=== PATIENT | male | born 1950 | race Caucasian/White ===

== ENCOUNTER 2021-06-06 09:46 | Inpatient (IN) | payer MEDICARE, MEDICAID ==
[~2021-06-06] VITALS: Ht 172.7 cm; Wt 86.2 kg
[2021-06-06 10:32] LABS: BASOPHILS % 0.5 % (0.0-2.0); EOSINOPHILS % 1.4 % (0.0-5.0); HEMATOCRIT. 48.9 % (42.0-52.0); HEMOGLOBIN. 16.2 g/dL (14.0-18.0); LYMPHOCYTES % 24.3 % (20.0-50.0); MEAN CORPUSCULAR HEMOGLOBIN 26.5 pg (28.0-32.0); MEAN PLATELET VOLUME 8.4 fl (7.4-10.4); MONOCYTES % 5.5 % (2.0-8.0); NEUTROPHILS % 68.3 % (40.0-76.0); PLATELET 190 x1000/uL (130-400); RED BLOOD CELL COUNT 6.11 mill/uL (4.7-6.1)
[2021-06-06 10:35] LABS: CHLORIDE 102 mEq/L (98-107)
[2021-06-06 10:40] LABS: PARTIAL THROMBOPLASTIN TIME 26.7 sec (23.4-31.0); PROTHROMBIN TIME 10.5 sec (9.6-11.0)
[2021-06-06] MEDS ORDERED: SODIUM CHLORIDE 0.9% 1,000 ML IV SCH (10:45)
[2021-06-06] MEDS ORDERED: INSU100I32 SQ (11:34)
[2021-06-06] MEDS ORDERED: INSU100I24 SQ (11:34)
[2021-06-06] MEDS ORDERED: BACITRACIN 15GM TUBE TOP ONE (11:47)
[2021-06-06] MEDS ORDERED: BUPIVACAINE HCL/PF 0.5% (5MG/ML) 30ML ONE (11:47)
[2021-06-06] MEDS ORDERED: POLYMYXIN B SULFATE 500000 UNITS/VIAL ONE (11:48)
[2021-06-06] MEDS ORDERED: SODIUM CHLORIDE 0.9% INJ 10ML FLUSH IVF ONE (11:48)
[2021-06-06] MEDS ORDERED: LIDOCAINE HCL 1% 10 MG/ML 10ML VIAL ONE (11:48)
[2021-06-06] MEDS ORDERED: SODIUM CHLORIDE 0.9% 500 ML IV ONE (11:49)
[2021-06-06] MEDS ORDERED: SODIUM CHLORIDE 0.9% 1,000 ML ONE (11:49)
[2021-06-06] MEDS ORDERED: THROMBIN (BOVINE) 5000 UNITS/VIAL TOP ONE (11:49)
[2021-06-06] MEDS ORDERED: HEPARIN SODIUM 1,000 UNIT/1ML VIAL IV ONE (11:58)
[2021-06-06] MEDS ORDERED: MORPHINE SULFATE 4 MG/ML CPJ (NOT FOR IM USE) IV PRN (12:00)
[2021-06-06] MEDS ORDERED: ETOMIDATE 2MG/ML 10ML VIAL IV ONE (12:23)
[2021-06-06] MEDS ORDERED: ROCURONIUM BROMIDE 10MG/ML VIAL 5ML IV ONE (12:24)
[2021-06-06] MEDS ORDERED: SUCCINYLCHOLINE CHLORIDE 200MG/10ML IV ONE (12:24)
[2021-06-06] MEDS ORDERED: ACETAMINOPHEN 500MG TABLET ONE (12:26)
[2021-06-06] MEDS ORDERED: FENTANYL CITRATE/PF 50MCG/ML 2ML VIAL ONE (12:33)
[2021-06-06] MEDS ORDERED: NALOXONE HCL 0.4MG/ML VIAL IV PRN (12:45)
[2021-06-06] MEDS ORDERED: SODIUM CHLORIDE 0.9% 10ML VIAL ONE (13:15)
[2021-06-06] MEDS ORDERED: HEPARIN 1000 UNITS/ML 10ML ONE (13:15)
[2021-06-06] MEDS ORDERED: INSULIN REGULAR (HUMULIN R) 300UNITS/3ML VIAL ONE (13:22)
[2021-06-06] MEDS ORDERED: EPHEDRINE SULFATE 50MG/ML VIAL ONE (13:40)
[2021-06-06] MEDS ORDERED: ALBUMIN HUMAN 12.5G/250ML (5%) IV ONE (14:10)
[2021-06-06] MEDS ORDERED: PROTAMINE SULFATE 10MG/ML VIAL 25ML IV ONE (14:19)
[2021-06-06] MEDS ORDERED: ONDANSETRON HCL 4MG/2ML INJ ONE (14:23)
[2021-06-06] MEDS ORDERED: NEOSTIGMINE METHYLSULFATE 1MG/ML 10 ML VIAL ONE (14:44)
[2021-06-06] MEDS ORDERED: GLYCOPYRROLATE 0.2 MG/ML 2ML VIAL ONE (14:45)
[2021-06-06] MEDS ORDERED: FENTANYL CITRATE/PF 50MCG/ML 2ML VIAL IV PRN (15:00)
[2021-06-06] MEDS ORDERED: INSULIN REGULAR (HUMULIN R) 300UNITS/3ML VIAL SUBCUT NR (15:00)
[2021-06-06] MEDS ORDERED: GABA-532 PO (15:35)
[2021-06-06] MEDS ORDERED: BRIM5DRO BOTHEYE (15:35)
[2021-06-06] MEDS ORDERED: ROSU40TA PO (15:35)
[2021-06-06] MEDS ORDERED: DORZ10DR8 BOTHEYE (15:35)
[2021-06-06] MEDS ORDERED: DORZ10DR17 OP (15:35)
[2021-06-06] MEDS ORDERED: CHOL3000 PO (15:35)
[2021-06-06] MEDS ORDERED: LISI10TA26 PO (15:35)
[2021-06-06] MEDS ORDERED: METO25TA6 PO (15:35)
[2021-06-06 17:00] VITALS: BP 174/65
[2021-06-06 17:30] VITALS: BP 174/65
[2021-06-06] MEDS ORDERED: DEXTROSE 50% WATER 50ML SYRINGE IV PRN (18:45)
[2021-06-06] MEDS ORDERED: ONDANSETRON HCL 4MG/2ML INJ IV PRN (18:45)
[2021-06-06] MEDS ORDERED: HYDROCODONE/ACETAMINOPHEN 5/325MG TABLET PO PRN (18:45)
[2021-06-06 20:00] VITALS: BP 142/61
[2021-06-06] MEDS: INSULIN LISPRO 100 UNITS/ML SUBCUT SCH (21:03)
[2021-06-06] MEDS: BLOOD SUGAR DIAGNOSTIC STRIP TEST SCH (21:12)
[2021-06-06] MEDS: INSULIN GLARGINE 100 UNITS/ML SUBCUT SCH (21:47)
[2021-06-07] VITALS (7 sets, daily range): BP systolic 116–172; BP diastolic 58–73
[2021-06-07] MEDS: BLOOD SUGAR DIAGNOSTIC STRIP TEST SCH ×2 (05:57→11:33)
[2021-06-07] MEDS: INSULIN LISPRO 100 UNITS/ML SUBCUT SCH ×2 (06:28→12:37)
[2021-06-07] MEDS: INSULIN GLARGINE 100 UNITS/ML SUBCUT SCH (09:28)
[2021-06-07 09:53] LABS: HEMATOCRIT 40.9 % (42.0-52.0); HEMOGLOBIN 13.5 g/dL (14.0-18.0); MEAN CORPUSCULAR HEMOGLOBIN 26.6 pg (28.0-32.0); MEAN CORPUSCULAR VOLUME 80.5 fL (80.0-94.0); PLATELET 176 x1000/uL (130-400); RED BLOOD CELL COUNT 5.08 mill/uL (4.7-6.1)
[2021-06-07] MEDS ORDERED: LISINOPRIL 20MG TABLET PO SCH (12:45)
[2021-06-07] MEDS ORDERED: MORPHINE SULFATE 2 MG/ML CPJ (NOT FOR IM USE) IV PRN (14:50)
[2021-06-07] MEDS ORDERED: METOPROLOL TARTRATE 25MG TABLET PO SCH (21:00)
== END 2021-06-07 16:40 | disposition home or self-care (01) | DRG 254 ==
LOC: OR 09:46 → 7EST 09:47
PROVIDERS: ADMIT Internal Medicine; ATTEND Internal Medicine
PROC: 041K0JL Bypass Right Femoral Artery to Popliteal Artery with Synthetic Substitute, Open Approach (ICD-10-PCS; principal; 2021-06-06)
DX: E11.52 Type 2 diabetes mellitus with diabetic peripheral angiopathy with gangrene (principal); E11.65 Type 2 diabetes mellitus with hyperglycemia; I10 Essential (primary) hypertension; Z20.822 Contact with and (suspected) exposure to COVID-19; I70.291 Other atherosclerosis of native arteries of extremities, right leg
CPT/HCPCS: 36415; 71045; 80048; 82962; 83036; 85025; 85027; 86850; 86900; 87426; 88304; 88311; 93005; 97162; C1751; J0330; J1644; J1815; J2405; J2710; J2720; J3010; J3490; J7030; J7040; P9041

== ENCOUNTER 2021-09-19 08:57 | Inpatient (IN) | payer MEDICARE, MEDICAID ==
[~2021-09-19] VITALS: Ht 172.7 cm; Wt 91.3 kg
[~2021-09-19 08:57] MED LIST: BRIM5DRO BOTHEYE; CHOL3000 PO; DORZ10DR17 OP; DORZ10DR8 BOTHEYE; GABA-532 PO; INSU100I24 SQ; INSU100I32 SQ; LISI10TA26 PO; METO25TA6 PO; ROSU40TA PO
[2021-09-19 10:30] LABS: BASOPHILS % 0.5 % (0.0-2.0); HEMATOCRIT. 46.5 % (42.0-52.0); HEMOGLOBIN. 15.2 g/dL (14.0-18.0); MEAN CORPUSCULAR HEMOGLOBIN 26.1 pg (28.0-32.0); MEAN CORPUSCULAR VOLUME 79.8 fL (80.0-94.0); MEAN PLATELET VOLUME 8.5 fl (7.4-10.4); MONOCYTES % 5.9 % (2.0-8.0); NEUTROPHILS % 67.6 % (40.0-76.0); PLATELET 195 x1000/uL (130-400); RED BLOOD CELL COUNT 5.83 mill/uL (4.7-6.1); RED CELL DISTRIBUTION WIDTH 14.8 % (11.6-14.6)
[2021-09-19 10:43] LABS: PARTIAL THROMBOPLASTIN TIME 26.8 sec (23.4-31.0); PROTHROMBIN TIME 10.8 sec (9.6-11.0)
[2021-09-19] MEDS ORDERED: SODIUM CHLORIDE 0.9% 1,000 ML IV SCH ×2 (11:00→14:45)
[2021-09-19] MEDS ORDERED: BUPIVACAINE HCL 0.5% (5MG/ML) 50ML ONE (11:15)
[2021-09-19] MEDS ORDERED: LIDOCAINE HCL 1% 50ML VIAL (10MG/ML) ONE ×2 (11:15→12:10)
[2021-09-19] MEDS ORDERED: POLYMYXIN B SULFATE 500000 UNITS/VIAL ONE (11:15)
[2021-09-19] MEDS ORDERED: HEPARIN SODIUM 1,000 UNIT/1ML VIAL IV ONE (11:15)
[2021-09-19] MEDS ORDERED: BACITRACIN 15GM TUBE TOP ONE (11:15)
[2021-09-19] MEDS ORDERED: THROMBIN (BOVINE) 5000 UNITS/VIAL TOP ONE (11:15)
[2021-09-19] MEDS ORDERED: PROPOFOL 200MG/20ML VIAL IV ONE (13:21)
[2021-09-19] MEDS ORDERED: FENTANYL CITRATE/PF 50MCG/ML 2ML VIAL ONE (13:22)
[2021-09-19] MEDS ORDERED: MIDAZOLAM HCL 2 MG/2 ML VIAL ONE (13:22)
[2021-09-19] MEDS ORDERED: ONDANSETRON HCL 4MG/2ML INJ IV PRN ×2 (13:30→14:45)
[2021-09-19] MEDS ORDERED: CEFAZOLIN SODIUM 1000MG/VIAL ONE (13:38)
[2021-09-19] MEDS ORDERED: NALOXONE HCL 0.4MG/ML VIAL IV PRN (13:45)
[2021-09-19] MEDS ORDERED: EPHEDRINE SULFATE 50MG/ML VIAL ONE (14:09)
[2021-09-19] MEDS ORDERED: DEXAMETHASONE 4MG/ML 1ML VIAL ONE (14:31)
[2021-09-19] MEDS ORDERED: ONDANSETRON HCL 4MG/2ML INJ ONE (14:31)
[2021-09-19] MEDS ORDERED: METOCLOPRAMIDE HCL 10MG/2ML VIAL ONE (14:31)
[2021-09-19] MEDS ORDERED: HEPARIN 1000 UNITS/ML 10ML ONE (14:31)
[2021-09-19] MEDS ORDERED: MEPERIDINE HCL/PF 25MG/ML CPJ IV PRN (14:45)
[2021-09-19] MEDS ORDERED: FENTANYL CITRATE/PF 50MCG/ML 2ML VIAL IV PRN (14:45)
[2021-09-19] MEDS ORDERED: HYDROMORPHONE HCL/PF 2MG/ML CPJ IV PRN (14:45)
[2021-09-19] MEDS ORDERED: PROTAMINE SULFATE 10MG/ML VIAL 5ML IV ONE (15:03)
[2021-09-19 19:50] VITALS: BP 157/61
[2021-09-19 20:28] VITALS: BP 115/55
[2021-09-19] MEDS ORDERED: DEXTROSE 50% WATER 50ML SYRINGE IV PRN (22:15)
[2021-09-19 22:27] VITALS: BP 107/57
[2021-09-19] MEDS: INSULIN GLARGINE 100 UNITS/ML SUBCUT SCH (22:51)
[2021-09-20] VITALS (14 sets, daily range): BP systolic 90–143; BP diastolic 49–61
[2021-09-20] MEDS: MORPHINE SULFATE 4 MG/ML CPJ (NOT FOR IM USE) IV PRN ×2 (05:18→08:16)
[2021-09-20 07:14] LABS: BASOPHILS % 0.3 % (0.0-2.0); EOSINOPHILS % 0.1 % (0.0-5.0); HEMATOCRIT. 39.3 % (42.0-52.0); HEMOGLOBIN. 12.6 g/dL (14.0-18.0); LYMPHOCYTES % 18.3 % (20.0-50.0); MEAN CORPUSCULAR HEMOGLOBIN 25.9 pg (28.0-32.0); MEAN CORPUSCULAR VOLUME 80.5 fL (80.0-94.0); MEAN PLATELET VOLUME 8.7 fl (7.4-10.4); MONOCYTES % 8.4 % (2.0-8.0); NEUTROPHILS % 72.9 % (40.0-76.0); PLATELET 200 x1000/uL (130-400); RED BLOOD CELL COUNT 4.88 mill/uL (4.7-6.1); RED CELL DISTRIBUTION WIDTH 14.9 % (11.6-14.6)
[2021-09-20] MEDS: BLOOD SUGAR DIAGNOSTIC STRIP TEST SCH ×4 (08:04→21:19)
[2021-09-20] MEDS: INSULIN LISPRO 100 UNITS/ML SUBCUT SCH ×4 (08:14→21:18)
[2021-09-20] MEDS: GABAPENTIN 300MG CAPSULE PO SCH ×3 (08:15→17:17)
[2021-09-20] MEDS: METOPROLOL TARTRATE 25MG TABLET PO SCH ×2 (08:19→21:00)
[2021-09-20] MEDS: LISINOPRIL 10MG TABLET PO SCH (08:19)
[2021-09-20] MEDS ORDERED: PNEUMOCOCCAL 23-VAL P-SAC VAC 0.5 ML IM ONE (12:00)
[2021-09-20] MEDS: SODIUM CHLORIDE 0.9% 1,000 ML IV SCH (13:56)
[2021-09-20 16:43] LABS: BASOPHILS % 0.6 % (0.0-2.0); EOSINOPHILS % 0.5 % (0.0-5.0); HEMATOCRIT. 37.7 % (42.0-52.0); HEMOGLOBIN. 12.1 g/dL (14.0-18.0); LYMPHOCYTES % 18.1 % (20.0-50.0); MEAN CORPUSCULAR HEMOGLOBIN 26.2 pg (28.0-32.0); MEAN CORPUSCULAR VOLUME 81.6 fL (80.0-94.0); MEAN PLATELET VOLUME 8.6 fl (7.4-10.4); MONOCYTES % 11.2 % (2.0-8.0); NEUTROPHILS % 69.6 % (40.0-76.0); PLATELET 171 x1000/uL (130-400); RED BLOOD CELL COUNT 4.61 mill/uL (4.7-6.1); RED CELL DISTRIBUTION WIDTH 15.2 % (11.6-14.6)
[2021-09-20] MEDS ORDERED: ATORVASTATIN CALCIUM 40MG TABLET PO SCH (21:00)
[2021-09-20] MEDS: INSULIN GLARGINE 100 UNITS/ML SUBCUT SCH (21:19)
[2021-09-21] VITALS (7 sets, daily range): BP systolic 100–146; BP diastolic 49–74
[2021-09-21] MEDS: MORPHINE SULFATE 4 MG/ML CPJ (NOT FOR IM USE) IV PRN (02:19)
[2021-09-21] MEDS: SODIUM CHLORIDE 0.9% 1,000 ML IV SCH (02:25)
[2021-09-21] MEDS: BLOOD SUGAR DIAGNOSTIC STRIP TEST SCH ×2 (06:31→12:36)
[2021-09-21 06:37] LABS: BASOPHILS % 0.4 % (0.0-2.0); EOSINOPHILS % 1.2 % (0.0-5.0); HEMATOCRIT. 31.3 % (42.0-52.0); HEMOGLOBIN. 10.5 g/dL (14.0-18.0); LYMPHOCYTES % 24.2 % (20.0-50.0); MEAN CORPUSCULAR HEMOGLOBIN 26.7 pg (28.0-32.0); MEAN CORPUSCULAR VOLUME 79.9 fL (80.0-94.0); MEAN PLATELET VOLUME 8.8 fl (7.4-10.4); MONOCYTES % 9.1 % (2.0-8.0); NEUTROPHILS % 65.1 % (40.0-76.0); PLATELET 151 x1000/uL (130-400); RED BLOOD CELL COUNT 3.92 mill/uL (4.7-6.1); RED CELL DISTRIBUTION WIDTH 14.9 % (11.6-14.6)
[2021-09-21] MEDS: INSULIN LISPRO 100 UNITS/ML SUBCUT SCH (08:00)
[2021-09-21] MEDS: LISINOPRIL 10MG TABLET PO SCH (09:00)
[2021-09-21] MEDS: GABAPENTIN 300MG CAPSULE PO SCH (09:05)
[2021-09-21] MEDS: METOPROLOL TARTRATE 25MG TABLET PO SCH (09:05)
[2021-09-21 12:19] LABS: BASOPHILS % 0.5 % (0.0-2.0); EOSINOPHILS % 0.9 % (0.0-5.0); HEMATOCRIT. 35.8 % (42.0-52.0); HEMOGLOBIN. 11.5 g/dL (14.0-18.0); LYMPHOCYTES % 15.4 % (20.0-50.0); MEAN CORPUSCULAR HEMOGLOBIN 26.2 pg (28.0-32.0); MEAN CORPUSCULAR VOLUME 81.1 fL (80.0-94.0); MEAN PLATELET VOLUME 8.5 fl (7.4-10.4); MONOCYTES % 7.6 % (2.0-8.0); NEUTROPHILS % 75.6 % (40.0-76.0); PLATELET 173 x1000/uL (130-400); RED BLOOD CELL COUNT 4.41 mill/uL (4.7-6.1); RED CELL DISTRIBUTION WIDTH 15.1 % (11.6-14.6)
== END 2021-09-21 15:30 | disposition home or self-care (01) | DRG 253 ==
LOC: OR 08:57 → 5EST 21:18
PROVIDERS: ADMIT Internal Medicine; ATTEND Internal Medicine
PROC: 041L0JL Bypass Left Femoral Artery to Popliteal Artery with Synthetic Substitute, Open Approach (ICD-10-PCS; principal; 2021-09-19)
PROC: 04CL0ZZ Extirpation of Matter from Left Femoral Artery, Open Approach (ICD-10-PCS; 2021-09-19)
DX: I70.222 Atherosclerosis of native arteries of extremities with rest pain, left leg (principal); I70.92 Chronic total occlusion of artery of the extremities; N17.9 Acute kidney failure, unspecified; Z95.1 Presence of aortocoronary bypass graft; Z20.822 Contact with and (suspected) exposure to COVID-19; E11.51 Type 2 diabetes mellitus with diabetic peripheral angiopathy without gangrene; E78.5 Hyperlipidemia, unspecified; I10 Essential (primary) hypertension; I25.10 Atherosclerotic heart disease of native coronary artery without angina pectoris; Z79.4 Long term (current) use of insulin; Z79.899 Other long term (current) drug therapy
CPT/HCPCS: 36415; 80048; 82962; 83036; 85025; 87426; 88304; 88311; 90732; 93005; C1768; C9803; J0690; J1100; J1644; J1815; J2250; J2270; J2405; J2704; J2720; J2765; J3010; J3490; J7030

== ENCOUNTER → 2023-07-22 | Day surgery (SDC) | payer MEDICARE, MEDICAID ==
[~2023-07-22] VITALS: Ht 172.7 cm; Wt 81.6 kg
[~2023-07-22] MED LIST changes: +ATOR40TA70 PO; +BUPIVACAINE HCL/PF 0.5% (5MG/ML) 10ML ONE; +CLOP75TA33 PO; +EMPA1TAB21 PO; +ETOMIDATE 2MG/ML 10ML VIAL IV ONE; +FENTANYL CITRATE/PF 50MCG/ML 2ML VIAL ONE; +INSASP SUBCUT; -INSU100I32 SQ; -LISI10TA26 PO; +LOSA1TAB34 PO; +METO100T16 PO; -METO25TA6 PO; +MIDAZOLAM HCL 2 MG/2 ML VIAL ONE; -ROSU40TA PO; +SKIN ADHESIVE 0.7 GM EA TOP ONE
[2023-07-22] MEDS: SODIUM CHLORIDE 0.9% 1,000 ML IV SCH (07:27)
== END | disposition home or self-care (01) ==
LOC: OR 05:54
PROVIDERS: ATTEND Surgery
DX: R19.03 Right lower quadrant abdominal swelling, mass and lump (principal); L72.8 Other follicular cysts of the skin and subcutaneous tissue; E11.9 Type 2 diabetes mellitus without complications; I25.10 Atherosclerotic heart disease of native coronary artery without angina pectoris; E78.5 Hyperlipidemia, unspecified; I10 Essential (primary) hypertension; Z79.4 Long term (current) use of insulin; Z79.899 Other long term (current) drug therapy; Z98.890 Other specified postprocedural states; Z87.891 Personal history of nicotine dependence; Z82.49 Family history of ischemic heart disease and other diseases of the circulatory system; Z83.3 Family history of diabetes mellitus
CPT/HCPCS: 11406; 82962; 88304; J3010; J3490 ×2; J2250; A4217 ×2; Z7610 ×22